=== PATIENT | male | born 1995 | race Caucasian/White ===

== ENCOUNTER 2022-06-08 12:10 | Emergency (ER) | payer OTHER, SELFPAY ==
--- NOTE | ~2022-06-08 | CT_ITS ---
EXAMINATION: CT HEAD WITHOUT CONTRAST CLINICAL INFORMATION: Headaches and high blood pressure. COMPARISON: None. TECHNIQUE: Contiguous axial imaging was performed from the skullbase to vertex without intravenous administration of contrast. This CT examination was performed using dose optimization techniques as appropriate, variously including the following: *Automated exposure control *Adjustment of mA and/or kV according to patient size (this includes techniques or standardized protocols for targeted exams where dose is matched to indication/reason for exam; i.e. extremities or head) *Use of iterative reconstruction technique DLP: 659 mGy-cm. FINDINGS: There is no evidence of acute intracranial hemorrhage or territorial infarction. No abnormal mass effect or midline shift is seen. [place] to white matter differentiation is well preserved. No extra-axial fluid collections are identified. The ventricles are normal in size. There is no abnormal attenuation within the brain parenchyma. The osseous structures and soft tissues are normal. The mastoid air cells and visualized portions of the paranasal sinuses are well aerated. CT/CT head/brain wo IV con IMPRESSION: No acute intracranial pathology.
--- NOTE | ~2022-06-08 | XR_ITS ---
EXAMINATION: XR CHEST CLINICAL INFORMATION: Headache, high blood pressure COMPARISON: None available. TECHNIQUE: 2 views of the chest were obtained. FINDINGS: No significant abnormality is noted involving the heart, lungs, mediastinum, bony thorax or soft tissues. XR/XR chest 2V IMPRESSION: No evidence of acute pulmonary process.
[2022-06-08 12:17] VITALS: BP 173/107; PULSE 82; RESP 18; TEMP 36.7; O2SAT 99; BMI 26.6
--- NOTE | 2022-06-08 12:18 | ED.RECABL ---
HPI - Recheck/Abnormal Lab/Rx General Chief Complaint: General Medical <PARIS Valencia - Last Filed: 06/08/22 12:22> Stated Complaint: HIGH BP <PARIS Valencia - Last Filed: 06/08/22 12:22> Time Seen by Provider: 06/08/22 12:44 <PARIS Valencia - Last Filed: 06/08/22 12:22> Source: patient, RN notes reviewed, old records reviewed and product responsibility liaison <Curt Ku - Last Filed: 06/08/22 20:43> Mode of arrival: ambulatory <Crut Ku - Last Filed: 06/08/22 20:43> Limitations: language barrier <Curt Gunn Last Filed: 06/08/22 20:43> History of Present Illness HPI narrative: 26-year-old male presents for evaluation of headache. 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 He states that he had a bitemporal headache that radiates around the back of his head He took his blood pressure and he noted that it was high so he came to the ER for further evaluation. Currently his headache has completely resolved he has no discomfort whatsoever. The patient's left eye is red he states that he had cataract surgery 2 months ago. He is not sure why he had cataracts at such a young age He reports that his vision is unchanged in either eye Patient reports that he takes lisinopril 10 mg daily for his blood pressure. He reports up until a couple of months ago he was taking 20 mg b.i.d. by his doctor want to try and wean him off <Curt Ku - Last Filed: 06/08/22 20:43> Related Data Allergies/Adverse Reactions: Allergies Allergy/AdvReac Type Severity Reaction Status Date / Time diphenhydramine Allergy Rash Verified 06/08/22 12:16 [From Benadryl] piperacillin [From Zosyn] Allergy Rash Verified 06/08/22 12:16 promethazine [From Phenergan] Allergy Hives Verified 06/08/22 12:16 tazobactam [From Zosyn] Allergy Rash Verified 06/08/22 12:16 <PARIS Valencia Last Filed: 06/08/22 12:22> Review of Systems Constitutional: Constitutional: Reports as per HPI, Denies chills, Denies fatigue, Denies fever(s) and Reports headache(s) <Curt Ku - Last Filed: 06/08/22 20:43> ENT: Reports headache(s) <Crut Ku - Last Filed: 06/08/22 20:43> Cardiovascular: Cardiovascular: Denies chest pain and Denies dyspnea <Curt Ku - Last Filed: 06/08/22 20:43> Respiratory: Respiratory: Denies cough and Denies dyspnea <Curt Ku - Last Filed: 06/08/22 20:43> Gastrointestinal: Gastrointestinal: Denies abdominal pain, Denies constipation and Denies vomiting <Curt Ku - Last Filed: 06/08/22 20:43> Genitourinary: Genitourinary: Denies difficulty urinating and Denies dysuria <Curt Ku - Last Filed: 06/08/22 20:43> Neurologic: Reports headache(s) and Denies focal weakness <Curt Ku - Last Filed: 06/08/22 20:43> Endocrine: Endocrine: Denies fatigue <Curt Ku - Last Filed: 06/08/22 20:43> [facility]LY [facility] Social History Social History: Social History Advance Directives: No Advance Directives Information Provided: Yes <PARIS Valencia - Last Filed: 06/08/22 12:22> Physical Exam Vital Signs: Vital Signs: Last Vital Signs Temp 98.1 F 06/08/22 12:17 Pulse 72 06/08/22 14:13 Resp 18 06/08/22 14:13 BP 152/105 H 06/08/22 14:13 Pulse Ox 100 06/08/22 14:13 O2 Del Method Room Air 06/08/22 14:13 BMI result Body Mass Index 26.6 <PARIS Valencia - Last Filed: 06/08/22 12:22> Vital Signs: Last Vital Signs Temp 98.1 F 06/08/22 12:17 Pulse 72 06/08/22 14:13 Resp 18 06/08/22 14:13 BP 152/105 H 06/08/22 14:13 Pulse Ox 100 06/08/22 14:13 O2 Del Method Room Air 06/08/22 14:13 BMI result Body Mass Index 26.6 < Last Filed: 06/08/22 20:43> Const: General: healthy appearing, comfortable, no acute distress, alert and awake < Last Filed: 06/08/22 20:43> Nutritional Appearance: well nourished < Last Filed: 06/08/22 20:43> Orientation/consciousness: patient oriented x3 < Last Filed: 06/08/22 20:43> HEENT: Head: Yes normocephalic and Yes atraumatic < Last Filed: 06/08/22 20:43> Throat: Yes posterior oropharynx normal < Last Filed: 06/08/22 20:43> Eyes: Eyelids: Yes eyelids normal < Last Filed: 06/08/22 20:43> Conjunctivae: other (Left conjunctiva is injected) < Last Filed: 06/08/22 20:43> Corneas: corneas normal < Last Filed: 06/08/22 20:43> EOM: EOMs intact bilaterally < Last Filed: 06/08/22 20:43> Neck: Neck: Yes full ROM < Last Filed: 06/08/22 20:43> Resp: Effort & Inspection: normal respiratory effort, able to speak in complete sentences, no audible wheezes and not labored < Last Filed: 06/08/22 20:43> Auscultation: clear to auscultation bilaterally < Last Filed: 06/08/22 20:43> GI: Inspection: No distended < Last Filed: 06/08/22 20:43> Palpation (GI): Soft to palpation, not firm, nontender, no guarding and not rigid < Last Filed: 06/08/22 20:43> Auscultation: normoactive bowel sounds <Curt Ku - Last Filed: 06/08/22 20:43> Skin: General skin exam: no rashes or lesions noted and elasticity normal <Curt Smithy - Last Filed: 06/08/22 20:43> Neuro: General: patient oriented x3 <Curt Smithy - Last Filed: 06/08/22 20:43> Cranial nerves: Yes CN's II-XII intact bilaterally and Yes Bilaterally intact EOM present <Curt MartinYates - Last Filed: 06/08/22 20:43> Cognition (Neuro): normal cognition <Curt Ku - Last Filed: 06/08/22 20:43> Course Course Course Narrative: NHUNG-12:20PM - 26yoM who is Citizen Of [place]-speaking with a PMHx of HTN on lisinopril 10mg BID daily who is presenting to the ER with complaints of a headache to the right side of his head that started prior to arrival. Reports that due to his headache he took his blood pressure and was 160/114 therefore he came here for further evaluation treatment. Reports recently had cataract surgery. Denies any other symptoms related to this including dizziness, change in vision, paresthesias, chest pain or shortness of breath, weakness, nausea/vomiting, jaw pain, abdominal pain, back pain, flank pain or any other symptoms complaints or concerns at this time. Plan: Will obtain labs, CT scan of brain, chest x-ray, EKG. Patient will be sent back to the waiting room to be evaluated the ED. <PARIS Valencia - Last Filed: 06/08/22 12:22> Reevaluation(s) Reevaluation #1: Patient's CT scan without any evidence of acute abnormality. Patient's blood pressure was still somewhat high but improved with rest. He will follow-up with PCP <Curt Ku - Last Filed: 06/08/22 20:43> Time: 14:21 <Curt Ku - Last Filed: 06/08/22 20:43> Medical Decision Making Medical Decision Making MDM Narrative: 26-year-old male history of hypertension who is lisinopril was decreased to 2 months for presents for evaluation of high blood pressure. He had a headache may currently reports has completely resolved without any intervention. Workup was ordered in triage includes CT given the patient's headache on arrival with high blood pressure. Assuming the workup is without acute abnormalities the patient can safely be discharged. He can follow-up his hypertension with his primary doctor. We will recheck his pressure before discharge <Curt Ku - Last Filed: 06/08/22 20:43> Differential Diagnosis Hypertension Acute headache Tension headache Papilledema Cataracts <Curt Ku - Last Filed: 06/08/22 20:43> Lab Data Patient's T bili was elevated 2.7 no he has no abdominal pain, nausea, vomiting or abdominal tenderness. Incidental finding <Curt Ku - Last Filed: 06/08/22 20:43> Result Diagrams: 06/08/22 12:31 06/08/22 12:31 <PARIS Valencia - Last Filed: 06/08/22 12:22> Labs: Lab Results 06/08/22 06/08/22 06/08/22 Range/Units 12:31 12:31 12:31 WBC 6.7 (4.8-10.8) X10*3/uL RBC 5.51 (4.60-5.80) X10*6/uL Hgb 15.3 (14.0-18.0) g/dl Hct 47.5 (42.0-52.0) % MCV 86.2 (80.0-98.0) fL MCH 27.8 (27.0-33.0) pg MCHC 32.2 (31.0-36.0) g/dl RDW 12.4 (11.0-16.0) % Plt Count 240 (160-400) X10*3/uL MPV 10.7 (9.4-12.4) fL Immature Gran % (Auto) 0.1 (0.0-0.4) % Neut % (Auto) 69.5 (45-73) % Lymph % (Auto) 23.2 (20-40) % Taylor % (Auto) 5.9 (2-11) % Eos % (Auto) 1.0 (0-4) % Baso % (Auto) 0.3 (0-2) % Lymph # (Auto) 1.6 (1.2-4.9) X10*3/uL Taylor # (Auto) 0.4 (0.1-1.2) X10*3/uL Eos # (Auto) 0.1 (0.0-0.4) X10*3/uL Baso # (Auto) 0.0 (0.0-0.2) X10*3/uL Abs Immat Gran (auto) 0.01 (0.00-0.03) X10*3/uL Absolute Neuts (auto) 4.7 (2.0-8.3) x10*3/uL Absolute Nucleated RBC 0.000 (0.0-0.012) X10*3/uL Nucleated RBC % (auto) 0.0 (0.0-0.2) /100WBC PT 12.4 (10.0-13.1) SEC INR 1.1 (0.9-1.1) Sodium 139 (135-145) mmol/L Potassium 4.0 (3.3-5.1) mmol/L Chloride 105 (96-108) mmol/L Carbon Dioxide 25 (22-29) mmol/L Anion Gap 13 (12-20) BUN 18 H (9-16) mg/dL Creatinine 0.97 (0.5-1.4) mg/dL Estim Creat Clear Calc 109.7 Estimated GFR > 60 Random Glucose 86 (60-115) mg/dL Calcium 9.3 (8.4-10.2) mg/dL Magnesium 1.7 (1.6-2.6) mg/dL Total Bilirubin 2.7 H (0.0-1.0) mg/dL AST 20 (5-37) U/L ALT 17 (0-40) U/L Alkaline Phosphatase 57 (39-117) U/L Total Protein 7.0 (6.5-8.0) g/dL Albumin 4.0 (3.5-5.0) g/dL Influenza Type A (PCR) (Negative) Influenza Type B (PCR) (Negative) RSV RNA Qual (PCR) (Negative) SARS-CoV-2 RNA (RT-PCR) (Negative) 06/08/22 Range/Units 12:31 WBC (4.8-10.8) X10*3/uL RBC (4.60-5.80) X10*6/uL Hgb (14.0-18.0) g/dl Hct (42.0-52.0) % MCV (80.0-98.0) fL MCH (27.0-33.0) pg MCHC (31.0-36.0) g/dl RDW (11.0-16.0) % Plt Count (160-400) X10*3/uL MPV (9.4-12.4) fL Immature Gran % (Auto) (0.0-0.4) % Neut % (Auto) (45-73) % Lymph % (Auto) (20-40) % Taylor % (Auto) (2-11) % Eos % (Auto) (0-4) % Baso % (Auto) (0-2) % Lymph # (Auto) (1.2-4.9) X10*3/uL Taylor # (Auto) (0.1-1.2) X10*3/uL Eos # (Auto) (0.0-0.4) X10*3/uL Baso # (Auto) (0.0-0.2) X10*3/uL Abs Immat Gran (auto) (0.00-0.03) X10*3/uL Absolute Neuts (auto) (2.0-8.3) x10*3/uL Absolute Nucleated RBC (0.0-0.012) X10*3/uL Nucleated RBC % (auto) (0.0-0.2) /100WBC PT (10.0-13.1) SEC INR (0.9-1.1) Sodium (135-145) mmol/L Potassium (3.3-5.1) mmol/L Chloride (96-108) mmol/L Carbon Dioxide (22-29) mmol/L Anion Gap (12-20) BUN (9-16) mg/dL Creatinine (0.5-1.4) mg/dL Estim Creat Clear Calc Estimated GFR Random Glucose (60-115) mg/dL Calcium (8.4-10.2) mg/dL Magnesium (1.6-2.6) mg/dL Total Bilirubin (0.0-1.0) mg/dL AST (5-37) U/L ALT (0-40) U/L Alkaline Phosphatase (39-117) U/L Total Protein (6.5-8.0) g/dL Albumin (3.5-5.0) g/dL Influenza Type A (PCR) NEGATIVE (Negative) Influenza Type B (PCR) NEGATIVE (Negative) RSV RNA Qual (PCR) NEGATIVE (Negative) SARS-CoV-2 RNA (RT-PCR) NEGATIVE (Negative) <PARIS Valencia - Last Filed: 06/08/22 12:22> Lab Results 06/08/22 06/08/22 06/08/22 Range/Units 12:31 12:31 12:31 WBC 6.7 (4.8-10.8) X10*3/uL RBC 5.51 (4.60-5.80) X10*6/uL Hgb 15.3 (14.0-18.0) g/dl Hct 47.5 (42.0-52.0) % MCV 86.2 (80.0-98.0) fL MCH 27.8 (27.0-33.0) pg MCHC 32.2 (31.0-36.0) g/dl RDW 12.4 (11.0-16.0) % Plt Count 240 (160-400) X10*3/uL MPV 10.7 (9.4-12.4) fL Immature Gran % (Auto) 0.1 (0.0-0.4) % Neut % (Auto) 69.5 (45-73) % Lymph % (Auto) 23.2 (20-40) % Taylor % (Auto) 5.9 (2-11) % Eos % (Auto) 1.0 (0-4) % Baso % (Auto) 0.3 (0-2) % Lymph # (Auto) 1.6 (1.2-4.9) X10*3/uL Taylor # (Auto) 0.4 (0.1-1.2) X10*3/uL Eos # (Auto) 0.1 (0.0-0.4) X10*3/uL Baso # (Auto) 0.0 (0.0-0.2) X10*3/uL Abs Immat Gran (auto) 0.01 (0.00-0.03) X10*3/uL Absolute Neuts (auto) 4.7 (2.0-8.3) x10*3/uL Absolute Nucleated RBC 0.000 (0.0-0.012) X10*3/uL Nucleated RBC % (auto) 0.0 (0.0-0.2) /100WBC PT 12.4 (10.0-13.1) SEC INR 1.1 (0.9-1.1) Sodium 139 (135-145) mmol/L Potassium 4.0 (3.3-5.1) mmol/L Chloride 105 (96-108) mmol/L Carbon Dioxide 25 (22-29) mmol/L Anion Gap 13 (12-20) BUN 18 H (9-16) mg/dL Creatinine 0.97 (0.5-1.4) mg/dL Estim Creat Clear Calc 109.7 Estimated GFR > 60 Random Glucose 86 (60-115) mg/dL Calcium 9.3 (8.4-10.2) mg/dL Magnesium 1.7 (1.6-2.6) mg/dL Total Bilirubin 2.7 H (0.0-1.0) mg/dL AST 20 (5-37) U/L ALT 17 (0-40) U/L Alkaline Phosphatase 57 (39-117) U/L Total Protein 7.0 (6.5-8.0) g/dL Albumin 4.0 (3.5-5.0) g/dL Influenza Type A (PCR) (Negative) Influenza Type B (PCR) (Negative) RSV RNA Qual (PCR) (Negative) SARS-CoV-2 RNA (RT-PCR) (Negative) 06/08/22 Range/Units 12:31 WBC (4.8-10.8) X10*3/uL RBC (4.60-5.80) X10*6/uL Hgb (14.0-18.0) g/dl Hct (42.0-52.0) % MCV (80.0-98.0) fL MCH (27.0-33.0) pg MCHC (31.0-36.0) g/dl RDW (11.0-16.0) % Plt Count (160-400) X10*3/uL MPV (9.4-12.4) fL Immature Gran % (Auto) (0.0-0.4) % Neut % (Auto) (45-73) % Lymph % (Auto) (20-40) % Taylor % (Auto) (2-11) % Eos % (Auto) (0-4) % Baso % (Auto) (0-2) % Lymph # (Auto) (1.2-4.9) X10*3/uL Taylor # (Auto) (0.1-1.2) X10*3/uL Eos # (Auto) (0.0-0.4) X10*3/uL Baso # (Auto) (0.0-0.2) X10*3/uL Abs Immat Gran (auto) (0.00-0.03) X10*3/uL Absolute Neuts (auto) (2.0-8.3) x10*3/uL Absolute Nucleated RBC (0.0-0.012) X10*3/uL Nucleated RBC % (auto) (0.0-0.2) /100WBC PT (10.0-13.1) SEC INR (0.9-1.1) Sodium (135-145) mmol/L Potassium (3.3-5.1) mmol/L Chloride (96-108) mmol/L Carbon Dioxide (22-29) mmol/L Anion Gap (12-20) BUN (9-16) mg/dL Creatinine (0.5-1.4) mg/dL Estim Creat Clear Calc Estimated GFR Random Glucose (60-115) mg/dL Calcium (8.4-10.2) mg/dL Magnesium (1.6-2.6) mg/dL Total Bilirubin (0.0-1.0) mg/dL AST (5-37) U/L ALT (0-40) U/L Alkaline Phosphatase (39-117) U/L Total Protein (6.5-8.0) g/dL Albumin (3.5-5.0) g/dL Influenza Type A (PCR) NEGATIVE (Negative) Influenza Type B (PCR) NEGATIVE (Negative) RSV RNA Qual (PCR) NEGATIVE (Negative) SARS-CoV-2 RNA (RT-PCR) NEGATIVE (Negative) <Curt Ku - Last Filed: 06/08/22 20:43> Discharge Plan Discharge Clinical Impression: Hypertension <PARIS Valencia - Last Filed: 06/08/22 12:22> Patient Disposition: Home, Self-Care <PARIS Valencia - Last Filed: 06/08/22 12:22> Instructions: Hypertension (ED) <PARIS Valencia - Last Filed: 06/08/22 12:22> Additional Instructions: Your workup in the emergency department not show any concerning abnormalities. Your blood pressure remained somewhat high. Follow-up with your primary doctor about any potential medication adjustments <PARIS Valencia - Last Filed: 06/08/22 12:22> Stand Alone Forms: Work/School Release <PARIS Valencia - Last Filed: 06/08/22 12:22> Interventions: ED Discharge Assessment Last Done: 06/08/22 14:45 <PARIS Valencia - Last Filed: 06/08/22 12:22> Discharge Date/Time: 06/08/22 14:49 <PARIS Valencia - Last Filed: 06/08/22 12:22>
--- NOTE | 2022-06-08 12:20 | ECG_ITS ---
Test Reason : HYPERTENSION Blood Pressure : / mmHG Vent. Rate : 080 BPM Atrial Rate : 080 BPM P-R Int : 184 ms QRS Dur : 098 ms QT Int : 342 ms P-R-T Axes : 056 022 009 degrees QTc Int : 394 ms Normal sinus rhythm Normal ECG No previous ECGs available Referred By: Maryam Park Electronically Signed By:DEVON HAMILTON
[2022-06-08 12:38] LABS: MANUAL DIFF FLAG NO
[2022-06-08 12:40] LABS: Basophils Percent Auto 0.3 % (0-2); Eosinophils Absolute Auto 0.1 X10*3/uL (0.0-0.4); Hematocrit 47.5 % (42.0-52.0); Hemoglobin 15.3 g/dl (14.0-18.0); Imm Gran Abs Auto 0.01 X10*3/uL (0.00-0.03); Imm Gran Pct Auto 0.1 % (0.0-0.4); Lymphocytes Absolute Auto 1.6 X10*3/uL (1.2-4.9); Lymphocytes Percent Auto 23.2 % (20-40); Mean Corpuscular HGB Conc 32.2 g/dl (31.0-36.0); Mean Corpuscular Hemoglobin 27.8 pg (27.0-33.0); Mean Corpuscular Volume 86.2 fL (80.0-98.0); Mean Platelet Volume 10.7 fL (9.4-12.4); Monocytes Absolute Auto 0.4 X10*3/uL (0.1-1.2); Monocytes Percent Auto 5.9 % (2-11); Neutrophils Absolute Auto 4.7 x10*3/uL (2.0-8.3); Neutrophils Percent Auto 69.5 % (45-73); Platelet Count 240 X10*3/uL (160-400); Red Blood Count 5.51 X10*6/uL (4.60-5.80); Red Cell Distribution Width 12.4 % (11.0-16.0); White Blood Count 6.7 X10*3/uL (4.8-10.8)
[2022-06-08 12:44] LABS: INTERNATIONAL NORM RATIO 1.1 (0.9-1.1); Prothrombin Time 12.4 SEC (10.0-13.1)
[2022-06-08 12:56] LABS: Alanine Aminotransferase 17 U/L (0-40); Alkaline Phosphatase 57 U/L (39-117); Anion Gap 13 (12-20); Aspartate Amino Transferase 20 U/L (5-37); Bilirubin Total 2.7 mg/dL (0.0-1.0); Blood Urea Nitrogen 18 mg/dL (9-16); Calcium 9.3 mg/dL (8.4-10.2); Carbon Dioxide 25 mmol/L (22-29); Chloride 105 mmol/L (96-108); Creatinine Clr Calc Pharmacy 109.7; Estimated Glomerular Filt Rate > 60; Glucose Random 86 mg/dL (60-115); Magnesium 1.7 mg/dL (1.6-2.6); Sodium 139 mmol/L (135-145)
[2022-06-08 13:20] LABS: Influenza A PCR NEGATIVE (Negative); Influenza B PCR NEGATIVE (Negative); Resp Syncy Virus RNA Qual PCR NEGATIVE (Negative); SARS COV2 PCR INHOUSE NEGATIVE (Negative)
[2022-06-08 14:13] VITALS: BP 152/105; PULSE 72; RESP 18; O2SAT 100
== END 2022-06-08 14:49 | disposition home or self-care (01) ==
PROVIDERS: Physician Assistant Medical; Emergency Provider Emergency Medicine
DX: I10 Essential (primary) hypertension (principal); Z79.899 Other long term (current) drug therapy; Z20.822 Contact with and (suspected) exposure to COVID-19; Z20.828 Contact with and (suspected) exposure to other viral communicable diseases
CPT/HCPCS: 0241U; 70450; 71046; 80053; 83735; 85025; 85610; 93005; 99283; 99284